=== PATIENT | female | born 1990 | race Caucasian/White ===

== ENCOUNTER 2019-01-18 04:28 | Emergency (ER) | payer OTHER ==
[~2019-01-18] VITALS: Ht 170.2 cm; Wt 68.2 kg
[2019-01-18 04:28] VITALS: BP 129/83
[2019-01-18] MEDS ORDERED: NAPR500T6 PO (05:59)
--- NOTE | 2019-01-18 07:22 | REP ---
Clinical: Trauma . Technique: AP, lateral, bilateral oblique views left ankle . Findings: No acute fracture or dislocation. Skeletal structures and joint spaces are intact and normal. Ankle mortise appears stable. No subcutaneous emphysema or radiodense foreign body. Impression: Normal left ankle radiograph series. Electronically Signed by Jhonathan Knight MD 01/18/2019 07:13 A
== END 2019-01-18 06:10 | disposition home or self-care (01) ==
LOC: M ED 04:28
DX: S93.402A Sprain of unspecified ligament of left ankle, initial encounter (principal); X50.9XXA Other and unspecified overexertion or strenuous movements or postures, initial encounter; Y92.410 Unspecified street and highway as the place of occurrence of the external cause

== ENCOUNTER 2019-03-18 20:22 | Emergency (ER) | payer OTHER ==
[~2019-03-18] VITALS: Ht 170.2 cm; Wt 68.2 kg
[2019-03-18 20:22] VITALS: BP 134/88
[~2019-03-18 20:22] MED LIST: NAPR500T6 PO
[2019-03-18] MEDS ORDERED: PENI500T PO (21:02)
[2019-03-18] MEDS ORDERED: PENICILLIN V POTASSIUM 500 MG TAB PO ONE (21:15)
== END 2019-03-18 21:21 | disposition home or self-care (01) ==
LOC: M ED 20:22
DX: J02.0 Streptococcal pharyngitis (principal)

== ENCOUNTER 2019-04-02 19:54 | Emergency (ER) | payer OTHER ==
[~2019-04-02] VITALS: Ht 170.2 cm; Wt 68.2 kg
[2019-04-02 19:54] VITALS: BP 132/85
[~2019-04-02 19:54] MED LIST changes: +PENI500T PO
[2019-04-02] MEDS ORDERED: AZIT500T2 PO (22:14)
[2019-04-02] MEDS ORDERED: AZITHROMYCIN 250 MG TAB PO ONE (22:15)
== END 2019-04-02 22:33 | disposition home or self-care (01) ==
LOC: M ED 19:54
DX: J02.0 Streptococcal pharyngitis (principal)